=== PATIENT | female | born 1980 | race Caucasian/White ===

== ENCOUNTER 2024-10-08 19:20 | Emergency (ER) | payer BC ==
[~2024-10-08] VITALS: Ht 165.1 cm; Wt 88.0 kg
[2024-10-08 19:32] VITALS: BP 107/62; PULSE 70; RESP 18; TEMP 37.1; O2SAT 99
[2024-10-08] MEDS ORDERED: ACETAMINOPHEN 325MG TABLET PO PRN (20:00)
[2024-10-08 20:51] LABS: BASOPHILS % 0.5 % (0.0-2.0); EOSINOPHILS % 1.2 % (0.0-5.0); HEMATOCRIT. 34.9 % (36.0-48.0); HEMOGLOBIN. 12.3 g/dL (12.0-16.0); LYMPHOCYTES % 18.5 % (20.0-50.0); MEAN CORPUSCULAR HEMOGLOBIN 33.3 pg (28.0-32.0); MEAN CORPUSCULAR HGB CONC 35.1 g/dL (31.0-37.0); MEAN CORPUSCULAR VOLUME 94.8 fL (81.0-99.0); MEAN PLATELET VOLUME 8.4 fl (7.4-10.4); MONOCYTES % 7.5 % (2.0-8.0); NEUTROPHILS % 72.3 % (40.0-76.0); PLATELET 222 x1000/uL (130-400); RED BLOOD CELL COUNT 3.68 mill/uL (4.2-5.4); RED CELL DISTRIBUTION WIDTH 12.9 % (11.6-14.6); WHITE BLOOD COUNT 10.5 x1000/uL (4.5-11.0)
[2024-10-08 20:52] LABS: CHLORIDE 105 mEq/L (98-107); POTASSIUM 4.4 mEq/L (3.5-5.1); SODIUM 140 mEq/L (136-145)
[2024-10-08 20:53] LABS: CARBON DIOXIDE 25 mEq/L (21-32)
[2024-10-08 20:54] LABS: CALCIUM 9.7 mg/dL (8.7-10.4)
[2024-10-08 20:58] LABS: CREATININE 0.6 mg/dL (0.6-1.0); GLUCOSE 106 mg/dL (70-105)
[2024-10-08 20:59] LABS: UREA NITROGEN BLOOD 8 mg/dL (9-23)
[2024-10-08 21:00] LABS: ALANINE AMINOTRANSFERASE 119 IU/L (10-49); ALBUMIN 4.2 g/dL (3.2-4.8); ASPARTATE AMINOTRANSFERASE 36 IU/L (<34)
[2024-10-08 21:01] LABS: BILIRUBIN DIRECT 0.3 mg/dL (<=3.0); BILIRUBIN TOTAL 0.8 mg/dL (0.1-1.0); PROTEIN TOTAL 7.1 g/dL (6.0-8.3)
[2024-10-08 21:12] LABS: B-HCG QUANTITATIVE 129592 mIU/mL (<3)
[2024-10-08 22:52] LABS: CLARITY URINE CLEAR (CLEAR); COLOR URINE YELLOW (YELLOW); GLUCOSE URINE NEGATIVE (NEGATIVE); KETONES URINE NEGATIVE (NEGATIVE); LEUKOCYTE ESTERASE URINE 1+ (NEGATIVE); NITRITE URINE NEGATIVE (NEGATIVE); OCCULT BLOOD URINE 3+ (NEGATIVE); PH URINE 5.5 (4.5-8.0); PROTEIN URINE 2+ (NEGATIVE); UROBILINOGEN URINE 0.2 E.U./dL (0.2-1.0)
[2024-10-08] MEDS ORDERED: CEPH500C2 MT (22:56)
[2024-10-08 23:12] LABS: BACTERIA URINE 1+; RBC URINE TNTC /hpf (0-2); SQUAMOUS EPITHELIAL CELL URINE 1+ /lpf (RARE/1+)
== END 2024-10-08 23:06 | disposition home or self-care (01) ==
LOC: ER 19:20
DX: O23.41 Unspecified infection of urinary tract in pregnancy, first trimester (principal); N39.0 Urinary tract infection, site not specified; Z3A.01 Less than 8 weeks gestation of pregnancy; O20.0 Threatened abortion
CPT/HCPCS: 36415; 76801; 80048; 80076; 81003; 84702; 85025; 86850; 86900; 99284